=== PATIENT | male | born 1970 | race Caucasian/White ===

== ENCOUNTER 2021-10-04 23:05 | Emergency (ER) | payer OTHER, BC ==
[~2021-10-04 23:05] MED LIST: ALTEPLASE IV ONE
[2021-10-04] MEDS ORDERED: Sodium Chloride 0.9% 10 ML Syringe FLUSH PRN (23:09)
[2021-10-04] MEDS: Sodium Chloride 0.9% 500 ML IV ONE ×2 (23:20→23:42)
[2021-10-04] MEDS ORDERED: levETIRAcetam 1,500 MG in Sodium Chloride 0.9% 100 ML IV ONE (23:26)
--- NOTE | 2021-10-04 23:35 | CRLCT ---
For Patients: As a result of the Century Cures Act, medical imaging exams and procedure reports are released immediately into your electronic medical record. You may view this report before your referring provider. If you have questions, please contact your health care provider. INDICATION: Acute stroke, could not find words or speak. COMPARISON: None. TECHNIQUE: CT of the head without IV contrast. Coronal and sagittal reconstructions are provided. FINDINGS: No intracranial hemorrhage, mass effect, or evidence of acute infarct. No midline shift. No abnormal extra-axial fluid collections. Normal caliber ventricular system. Orbits and extraocular muscles are symmetric. The paranasal sinuses and mastoid air cells are clear. No acute fracture identified. Soft tissues are unremarkable. IMPRESSION: : No acute intracranial findings. Please note that all CT scans at this facility use dose modulation, iterative reconstruction, and/or weight-based dosing when appropriate to reduce radiation dose to as low as reasonably achievable. Dictated by Lizzy Nolasco MD @ 10/04/2021 11:34:13 PM (Electronically Signed)
--- NOTE | 2021-10-04 23:40 | EDM.PDOC ---
ED HPI GENERAL MEDICAL PROBLEM - General Chief Complaint: Neuro Symptoms/Deficits Stated Complaint: MEDICAL [place] Time Seen by Provider: 10/04/21 23:08 Source of Information: Reports: Patient, EMS History Limitations: Reports: No Limitations - History of Present Illness INITIAL COMMENTS - FREE TEXT/NARRATIVE: CODE STROKE code stroke called at 2250. Patient arrived at 2300. in CT with patient [id number] Mackey is a 51-year-old male brought in by [facility] for evaluation of 2 episodes of aphasia and incoordination. The first episode started around 2100 hrs. and lasted until 2235. The patient was talking to a friend about his being hospitalized with Covid and all of a sudden found himself unable to speak or to text message because of incoordination of the hand. His symptoms fully resolved but recurred again at 2250 when he had another episode lasting about 5 minutes. Again he was unable to speak or move with any coordination. The patient states at that time he had some dizziness. He was able to contact 911 after the second episode and the [facility] crew was able to pick him up from a [facility] and bring him into the ED. A code stroke was called at 2250 and the patient arrived at 2300 hrs. and was brought emergently down to the CAT scan department for a CT of the head without contrast. This failed to demonstrate any acute abnormalities including acute intracranial hemorrhage, mass-effect, or evidence of acute infarct. The patient's NIH stroke score after the CT of the head was 0 and he was able not only to answer all questions but follows all commands and had motion in all extremities. As I came out of the room to start working on the report I was notified by nursing that the patient had acute sudden change in his ability to speak again incoordination with some atypical breathing with short gasps of air and right arm starting to contract with the left side being totally flaccid. The patient was not able to track with his vision towards the left but was able to look to the right. The pupils were not reactive to light. As I was concerned that this was a seizure instead of a stroke, we initiated a load of Keppra 1500 mg IV and a second IV was established. Patient remained in this state until 2350 when he started to be able to speak again. This lasted about a minute and then he again started exhibiting the breathing pattern as seen before and again was not tracking with his eyes. The patient is roughly 2 weeks out from having COVID-19. - Related Data Allergies Allergy/AdvReac Type Severity Reaction Status Date / Time No Known Allergies Allergy Verified 10/04/21 23:22 Home Meds: Home Meds NK [No Known Home Meds] 09/20/16 [History] Past Medical History - Past Health History Medical/Surgical History: Denies Medical/Surgical History - Infectious Disease History Infectious Disease History: Reports: Chicken Pox Social & Family History - Caffeine Use Caffeine Use: Reports: Soda ED ROS GENERAL - Review of Systems Review Of Systems: Unable To Obtain Reason Not Obtained: Patient is aphasic initially but was able to answer questions aft Constitutional: Reports: No Symptoms HEENT: Reports: No Symptoms Respiratory: Reports: No Symptoms Cardiovascular: Reports: No Symptoms Endocrine: Reports: No Symptoms GI/Abdominal: Reports: Vomiting (Patient did have a large emesis in the ambulance on the way to the hospital.) : Reports: No Symptoms Musculoskeletal: Reports: No Symptoms Skin: Reports: No Symptoms Neurological: Reports: Dizziness, Trouble Speaking, Weakness (Weakness more in the terms of incoordination.), Change in Speech. Denies: Confusion, Headache Psychiatric: Reports: Anxiety Hematologic/Lymphatic: Reports: No Symptoms Immunologic: Reports: No Symptoms ED EXAM, NEURO - Physical Exam Exam: See Below Exam Limited By: No Limitations General Appearance: Alert, No Apparent Distress, Anxious Eye Exam: Bilateral Eye: EOMI, PERRL Ears: Normal External Exam, Normal TMs Throat/Mouth: Normal Inspection, Normal Oropharynx, Normal Voice, No Airway Compromise Head Exam: Atraumatic, Normocephalic Neck: Normal Inspection, Supple, Non-Tender, Full Range of Motion. No: Carotid Bruit Respiratory/Chest: No Respiratory Distress, Lungs Clear, Normal Breath Sounds Cardiovascular: Normal Peripheral Pulses, Regular Rate, Rhythm, No Murmur GI/Abdominal: Normal Bowel Sounds, Soft, Non-Tender Neurological: Alert, Normal Mood/Affect, Normal Dorsiflexion, CN II-XII Intact, Normal Plantar Flexion, Normal Gait, Normal Reflexes, No Motor/Sensory Deficits, Oriented x 3 Back Exam: Normal Inspection, Full Range of Motion Extremities: Normal Inspection, Normal Range of Motion Psychiatric: Normal Affect, Anxious Skin Exam: Warm, Dry, Intact, Normal Color #1 Interpretation EKG Date: 10/04/21 Time: 00:15 Rhythm: NSR Rate (Beats/Min): 103 [place]riet: Normal P-Wave: Present QRS: Normal ST-T: Normal QT: Normal Comparison: NA - No Prior EKG Course - Orders/Labs/Meds Orders: Active Orders 24 hr Category Date Time Status Assess Neurological Status [RC] CONTINUOUS Care 10/04/21 23:09 Ordered Blood Glucose Check, Bedside [RC] STAT Care 10/04/21 23:09 Ordered Cardiac Monitoring [RC] CONTINUOUS Care 10/04/21 23:09 Ordered Communication Order [RC] STAT Care 10/04/21 23:09 Ordered EKG Documentation Completion [RC] ASDIRECTED Care 10/04/21 23:09 Ordered Height and Weight [RC] UPON Care 10/04/21 23:09 Ordered NIH Stroke Scale [RC] Q15M Care 10/04/21 23:09 Ordered NIH Stroke Scale [RC] STAT Care 10/04/21 23:09 Ordered Oxygen Therapy, ED [RC] ASDIRECTED Care 10/04/21 23:09 Ordered Peripheral IV Care [RC] . DIRECTED Care 10/04/21 23:09 Ordered Vital Signs [RC] Q15M Care 10/04/21 23:09 Ordered [place] Bedside Swallow Assessment [RC] ASDIRECTED Care 10/04/21 23:09 Ordered Head wo Cont [CT] Stat Exams 10/04/21 23:09 Ordered CBC WITH AUTO DIFF [HEME] Stat Lab 10/04/21 23:09 Ordered COMPREHENSIVE METABOLIC PN,CMP [CHEM] Stat Lab 10/04/21 23:09 Ordered INR,PT,PROTHROMBIN TIME [COAG] Stat Lab 10/04/21 23:09 Ordered PTT,PARTIAL THROMBOPLSTIN TIME [COAG] Stat Lab 10/04/21 23:09 Ordered TROPONIN I [CHEM] Stat Lab 10/04/21 23:09 Ordered Sodium Chloride 0.9% [Normal Saline] 500 ml Med 10/04/21 23:09 Ordered IV BOLUS Sodium Chloride 0.9% [Saline Flush] Med 10/04/21 23:09 Ordered 10 ml FLUSH ASDIRECTED PRN Peripheral IV Insertion Adult [OM.PC] Stat Oth 10/04/21 23:09 Ordered Peripheral IV Insertion Adult [OM.PC] Stat Oth 10/04/21 23:09 Ordered EKG 12 Lead [EK] Stat Ther 10/04/21 23:09 Ordered Medication Orders Sodium Chloride (Normal Saline) 500 mls @ 150 mls/hr IV BOLUS ONE Stop: 10/05/21 02:28 Sodium Chloride (Sodium Chloride 0.9% 10 Ml Syringe) 10 ml FLUSH ASDIRECTED PRN PRN Reason: Keep Vein Open Meds: Medications Generic Name Dose Route Start Last Admin Trade Name Freq PRN Reason Stop Dose Admin Sodium Chloride 500 mls @ 150 mls/hr 10/04/21 23:09 Normal Saline IV 10/05/21 02:28 BOLUS ONE Sodium Chloride 10 ml 10/04/21 23:09 Sodium Chloride 0.9% 10 Ml Syringe FLUSH ASDIRECTED PRN Keep Vein Open - Radiology Interpretation Free Text/Narrative:: I reviewed the images of the CT of the head without contrast as well as report the report shows no acute intracranial abnormalities. There is no evidence for hemorrhage, mass-effect, or infarct. There is no midline shift. There is no abnormal extra-axial fluid collections. Normal caliber ventricle system. Orbits and extraocular muscles are symmetric. There is paranasal sinus and mastoid air cells are clear. No acute fracture identified. Soft tissues are unremarkable. - Re-Assessments/Exams Free Text/Narrative Re-Assessment/Exam: 10/04/21 23:51 shortly after returning from CT and after the completion of my initial NIH stroke score which was 0, the patient became unresponsive with aphasia both expressive and receptive not following commands or able to talk. He was noted by nursing to have his right arm contracted and his left side was flaccid. The patient cannot track towards the left. His pupils were unreactive to light stimuli. This lasted from 2323 to 2350 when he again was able to speak. His NIH stroke score at this time is a 9. I discussed the case with Dr. Galarza, stroke service at [facility] and we both agree that this certainly could be seizure but also could be a right hemispheric stroke. We will proceed with both loading with Keppra 1500 mg IV as well as initiating TPA. Because of weather, I am advising we go by ground. 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 This excludes procedures. 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 SNOMED Code(s): 846479171045331, [id number] Code(s): I63.411 - CEREB INFRC DUE TO EMBOLISM OF RIGHT MIDDLE CEREBRAL ARTERY Status: Acute Priority: High Current Visit: Yes - Problem List Review Problem List Initiated/Reviewed/Updated: Yes - My Orders Last 24 Hours: My Active Orders 10/04/21 23:09 Assess Neurological Status [RC] CONTINUOUS Blood Glucose Check, Bedside [RC] STAT Cardiac Monitoring [RC] CONTINUOUS Communication Order [RC] STAT EKG Documentation Completion [RC] ASDIRECTED Height and Weight [RC] UPON NIH Stroke Scale [RC] Q15M NIH Stroke Scale [RC] STAT Oxygen Therapy, ED [RC] ASDIRECTED Peripheral IV Care [RC] . DIRECTED Vital Signs [RC] Q15M [place] Bedside Swallow Assessment [RC] ASDIRECTED Head wo Cont [CT] Stat CBC WITH AUTO DIFF [HEME] Stat COMPREHENSIVE METABOLIC PN,CMP [CHEM] Stat INR,PT,PROTHROMBIN TIME [COAG] Stat PTT,PARTIAL THROMBOPLSTIN TIME [COAG] Stat TROPONIN I [CHEM] Stat Sodium Chloride 0.9% [Normal Saline] 500 ml IV BOLUS Sodium Chloride 0.9% [Saline Flush] 10 ml FLUSH ASDIRECTED PRN Peripheral IV Insertion Adult [OM.PC] Stat Peripheral IV Insertion Adult [OM.PC] Stat EKG 12 Lead [EK] Stat - Assessment/Plan Last 24 Hours: My Active Orders 10/04/21 23:09 Assess Neurological Status [RC] CONTINUOUS Blood Glucose Check, Bedside [RC] STAT Cardiac Monitoring [RC] CONTINUOUS Communication Order [RC] STAT EKG Documentation Completion [RC] ASDIRECTED Height and Weight [RC] UPON NIH Stroke Scale [RC] Q15M NIH Stroke Scale [RC] STAT Oxygen Therapy, ED [RC] ASDIRECTED Peripheral IV Care [RC] . DIRECTED Vital Signs [RC] Q15M [place] Bedside Swallow Assessment [RC] ASDIRECTED Head wo Cont [CT] Stat CBC WITH AUTO DIFF [HEME] Stat COMPREHENSIVE METABOLIC PN,CMP [CHEM] Stat INR,PT,PROTHROMBIN TIME [COAG] Stat PTT,PARTIAL THROMBOPLSTIN TIME [COAG] Stat TROPONIN I [CHEM] Stat Sodium Chloride 0.9% [Normal Saline] 500 ml IV BOLUS Sodium Chloride 0.9% [Saline Flush] 10 ml FLUSH ASDIRECTED PRN Peripheral IV Insertion Adult [OM.PC] Stat Peripheral IV Insertion Adult [OM.PC] Stat EKG 12 Lead [EK] Stat
[2021-10-05 00:43] VITALS: BP 136/90; PULSE 94
== END 2021-10-05 00:20 ==
LOC: JP.ED 23:05
DX: I63.411 Cerebral infarction due to embolism of right middle cerebral artery (principal)
CPT/HCPCS: 36415; 37195; 70450; 80053; 84484; 85025; 85610; 85730; 93005; 96365; 96375; 99285; J1953; J2997; J7040

== ENCOUNTER 2023-03-27 18:36 | Emergency (ER) | payer OTHER, BC ==
[2023-03-27] MEDS ORDERED: Lidocaine 1% 5 ML VIAL INJECT ONE (18:41)
[2023-03-27] MEDS ORDERED: Bacitracin Oint 1 GM U/D Packet TOP ONE (18:41)
[2023-03-27] MEDS ORDERED: Diphtheria,Pertussis(Acell),Tetanus Vaccine 0.5 ML Syringe IM ONE (18:41)
[2023-03-27 19:06] VITALS: BP 131/73; PULSE 73
== END 2023-03-27 19:45 | disposition home or self-care (01) ==
LOC: JP.ED 18:36
DX: S61.012A Laceration without foreign body of left thumb without damage to nail, initial encounter (principal); Z86.16 Personal history of COVID-19; W26.8XXA Contact with other sharp object(s), not elsewhere classified, initial encounter
CPT/HCPCS: 12001; 99282